=== PATIENT | female | born 1935 | race Caucasian/White ===

== ENCOUNTER → 2016-10-15 | Outpatient (CLI) | payer MEDICARE ==
[~2016-10-15] MED LIST: ASPIRIN LO-DOSE81 MG PO; BYSTOLIC20 MG PO; CIPRO500 MG PO; IMDUR60 MG PO; IMODIUM2 MG PO; LANTUS (IN100 UNIT/M SUB-Q; LEVOTHROID (S100 MCG PO; NORVASC5 MG PO; PRAVACHOL40 MG PO; PRINIVIL (ZESTR20 MG PO; TYLENOL325 MG PO
== END | disposition disaster alternative care site (69) ==
LOC: GAMB 02:22
DX: R53.1 Weakness (principal); I10 Essential (primary) hypertension; E11.9 Type 2 diabetes mellitus without complications; H53.9 Unspecified visual disturbance; H91.90 Unspecified hearing loss, unspecified ear; I48.2 Chronic atrial fibrillation; E78.5 Hyperlipidemia, unspecified; R42 Dizziness and giddiness; R47.9 Unspecified speech disturbances; Z86.73 Personal history of transient ischemic attack (TIA), and cerebral infarction without residual deficits; Z88.2 Allergy status to sulfonamides; Z79.4 Long term (current) use of insulin; Z88.8 Allergy status to other drugs, medicaments and biological substances